=== PATIENT | female | born 1975 | race Caucasian/White ===

== ENCOUNTER → 2020-04-22 | Outpatient (CLI) | payer OTHER | END | disposition home or self-care (01) | LOC: LAB 14:18 | PROVIDERS: ATTEND Nurse Practitioner | DX: E34.9 Endocrine disorder, unspecified (principal) | CPT/HCPCS: 36415; 82670; 84403 ==

== ENCOUNTER → 2020-07-26 | Outpatient (CLI) | payer OTHER, SELFPAY | END | disposition home or self-care (01) | LOC: LAB 10:33 | PROVIDERS: ATTEND Nurse Practitioner | DX: E34.9 Endocrine disorder, unspecified (principal) | CPT/HCPCS: 36415; 82670; 84132; 84403 ==

== ENCOUNTER → 2021-03-14 | Outpatient (CLI) | payer OTHER | END | disposition home or self-care (01) | LOC: OIH 13:50 | PROVIDERS: ATTEND Internal Medicine | DX: M47.816 Spondylosis without myelopathy or radiculopathy, lumbar region (principal); M54.9 Dorsalgia, unspecified | CPT/HCPCS: 72100 ==